=== PATIENT | male | born 2000 | race Caucasian/White ===

== ENCOUNTER 2024-07-31 12:03 | Outpatient (CLI) | payer OTHER ==
[2024-07-31 13:01] LABS: #Basophils 0.05 10x3/uL (0.0-0.2); %Basophils 0.7 % (0.0-1.0); %Eosinophils 13.2 % (0.0-10.0); %Lymphocytes 33.2 % (21.0-51.0); %Monocytes 7.7 % (0.0-10.0); %Neutrophils 44.8 % (42.0-75.0); Hematocrit 43.9 % (42.0-52.0); Hemoglobin 14.5 g/dL (14.0-18.0); Mean Corpuscular Volume 90.9 fL (78.0-98.0); Mean Platelet Volume 10.9 fL (7.4-10.4); Platelet Count 253 10x3/uL (130-400); RBC Distribution Width 12.4 % (11.5-14.5); Red Blood Cell (RBC) Count 4.83 mill/uL (4.70-6.10)
== END 2024-07-31 12:04 | disposition home or self-care (01) ==
LOC: LABBT 12:03
PROVIDERS: ATTEND Surgery
DX: Z01.812 Encounter for preprocedural laboratory examination (principal); R59.1 Generalized enlarged lymph nodes
CPT/HCPCS: 85025

== ENCOUNTER 2024-08-03 06:48 | Day surgery (SDC) | payer OTHER ==
[2024-07-31 12:30] VITALS: BMI 22.8
[2024-08-03] MEDS ORDERED: Sodium Chloride 0.9% 100 ML ONE (07:07)
[2024-08-03] MEDS ORDERED: Lidocaine 1% MPF 2 ML VIAL ONE (07:07)
[2024-08-03] MEDS ORDERED: CEFAZOLIN 2 GM VIAL ONE (07:07)
[2024-08-03] MEDS ORDERED: Bupivacaine 0.25% HCL 30 ML VIAL ONE (08:21)
[2024-08-03] MEDS ORDERED: EPINEPHrine 1 MG/ML VIAL ONE (08:21)
[2024-08-03] MEDS ORDERED: fentaNYL PF 100 MCG/2 ML SYRINGE ONE (08:28)
[2024-08-03] MEDS ORDERED: Midazolam HCl 2 mg/2 ml Vial ONE (08:28)
[2024-08-03] MEDS ORDERED: Lidocaine 2% PF 100 mg/5 ml Syringe ONE (08:28)
[2024-08-03] MEDS ORDERED: PROPOFOL 20 ML ONE (08:28)
[2024-08-03] MEDS ORDERED: Dexmedetomidine 200 MCG/2 ML VIAL ONE (09:02)
[2024-08-03] MEDS ORDERED: Dexamethasone 4 mg/ml Vial ONE (09:02)
[2024-08-03] MEDS ORDERED: Ondansetron PF 4 MG/2 ML Vial ONE (09:02)
[2024-08-03] MEDS ORDERED: Ketorolac Tromethamine 30 MG (1 mL) VIAL ONE (09:15)
[2024-08-03] MEDS ORDERED: HYDROcodone/Acetaminophen 5/325 mg Tablet ONE (10:30)
== END 2024-08-03 11:25 | disposition home or self-care (01) ==
LOC: SDC 06:48
PROVIDERS: ATTEND Surgery
PROC: 07BC0ZX Excision of Pelvis Lymphatic, Open Approach, Diagnostic (ICD-10-PCS; principal; 2024-08-03)
DX: D36.16 Benign neoplasm of peripheral nerves and autonomic nervous system of pelvis (principal); R59.1 Generalized enlarged lymph nodes; J18.9 Pneumonia, unspecified organism; F17.200 Nicotine dependence, unspecified, uncomplicated
CPT/HCPCS: 87070; 87205; 88184; 88305; A6258; J0171; J0665; J1100; J1885; J2001; J2250; J2405; J2704